=== PATIENT | male | born 1995 | race Caucasian/White ===

== ENCOUNTER 2017-04-13 10:56 | Outpatient (CLI) | payer BC | END 2017-04-13 10:57 | disposition home or self-care (01) | LOC: LABBT 10:56 | PROVIDERS: ATTEND Specialist | DX: Z01.812 Encounter for preprocedural laboratory examination (principal); K40.90 Unilateral inguinal hernia, without obstruction or gangrene, not specified as recurrent ==

== ENCOUNTER 2017-04-19 10:30 | Day surgery (SDC) | payer BC ==
[2017-04-18 13:12] VITALS: BMI 27.9
[2017-04-19] MEDS ORDERED: CEFAZOLIN/Water 2 GM/20 ML SYRINGE ONE (11:14)
[2017-04-19] MEDS ORDERED: Ketorolac Tromethamine 30 MG/ML VIAL ONE ×2 (11:15→13:37)
[2017-04-19 11:29] LABS: #Basophils 0.1 thou/uL (0.0-0.2); #Eosinphils 0.1 thou/uL (0.0-0.7); #Monocytes 0.6 thou/uL (0.11-0.59); #Neutrophils 4.5 thou/uL (1.40-6.50); %Basophils 1.5 % (0.0-1.0); %Eosinophils 1.9 % (0.0-10.0); %Lymphocytes 27.3 % (21.0-51.0); %Monocytes 8.4 % (0.0-10.0); Hematocrit 47.6 % (42.0-52.0); Mean Platelet Volume 6.3 fL (7.4-10.4); Red Blood Cell (RBC) Count 5.24 mill/uL (4.70-6.10); White Blood Cell (WBC) Count 7.3 thou/uL (4.8-10.8)
[2017-04-19 11:54] LABS: Anion Gap 12 mmol/L (10-20); BUN (Urea Nitrogen) 10 mg/dL (8.9-20.6); Calc. Creatinine Clearance 158 mL/min (70-130); Calcium 9.5 mg/dL (7.8-10.44); Carbon Dioxide 25 mmol/L (22-29); Chloride 106 mmol/L (98-107); Estimated GFR-MDRD Greater than 90
[2017-04-19] MEDS ORDERED: Fentanyl 250 MCG/5 ML VIAL ONE (12:51)
[2017-04-19] MEDS ORDERED: Bupivacaine/Epinephrine 0.25% 30 ML VIAL ONE (13:08)
[2017-04-19] MEDS ORDERED: Midazolam HCl 2 mg/2 ml Vial ONE (13:31)
[2017-04-19] MEDS ORDERED: Lidocaine 2% MPF 10 ML AMP (For Epidural Use) ONE (13:37)
[2017-04-19] MEDS ORDERED: Glycopyrrolate 0.2 MG/ML 5 ML SYRINGE ONE (13:37)
[2017-04-19] MEDS ORDERED: Propofol 200 MG/20 ML VIAL ONE (13:37)
[2017-04-19] MEDS ORDERED: Fentanyl 100 MCG/2 ML VIAL ONE (16:39)
[2017-04-19] MEDS ORDERED: HYDROcodone/Acetaminophen 5/325 mg Tablet ONE (17:19)
--- NOTE | 2017-04-19 22:03 | OP ---
DATE OF PROCEDURE: 04/19/2017 PREOPERATIVE DIAGNOSIS: Right inguinal hernia, large inguinoscrotal type. POSTOPERATIVE DIAGNOSIS: Right inguinal hernia, large inguinoscrotal type, large indirect hernia ex tending into the scrotum. OPERATION PERFORMED: Robotic repair of large right inguinal hernia using a large ProGrip mesh patch . SURGEON: Julius Holland M.D. ANESTHESIA: General endotracheal. INDICATIONS: The patient is a 21-year-old white male, who presents with a large visible and palpabl e right inguinal hernia. This extended into his upper scrotum. He is taken to the operating room a t this time for robotic repair. DESCRIPTION OF OPERATION: Informed consent was obtained. The patient was taken to the operating ro om where general endotracheal anesthesia was obtained with the patient in supine position. Abdomen was prepped with ChloraPrep and draped in usual sterile fashion and patient was placed in Trendelenb urg position. Local anesthetic was infiltrated and a 12-mm supraumbilical incision was created thro ugh which a Veress needle was passed into the peritoneal cavity and pneumoperitoneum established usi ng carbon dioxide up to a pressure of 15 mmHg. A 12-mm trocar port was passed through this same inc ision and laparoscopic camera was passed through this port. Under direct vision, 2 additional 8-mm robotic ports were placed on either side of midline at the supraumbilical level. The robot was then docked to the ports and the camera and the operation was continued from the robotic console. The patient had a large obvious indirect hernia on the right side. Transverse incision was created in the peritoneum several centimeters superior to the hernia defect. Preperitoneal dissection was c arried inferiorly. I dissected the pubic tubercle and Kem's ligament on the medial aspect. On t he lateral aspect, I dissected laterally and inferiorly enough to give adequate room for the mesh to be placed. Attention was turned to the large hernia. This was carefully dissected away from the remaining cord structures and dissected distally along the cord until I arrived at the end of the hernia at which point it was dissected free from cord structures. I then dissected it widely away from the cord str uctures to give adequate peritoneal laxity for mesh placement. The large ProGrip mesh patch was obt ained and passed into the abdominal cavity. This positioned in the preperitoneal location and unfur led in a medial to lateral fashion. The medial aspect was secured to the pubic tubercle with a 2-0 Vicryl suture. I then placed 2 sutures on the anterior aspect, one medial to the epigastric vessels and one lateral to the epigastric vessels. There was excellent coverage over the hernia defect. T he peritoneum was then closed with a running suture of 3-0 Stratafix. The fascia at the 12-mm port site was closed with 0 Vicryl suture using a GraNee needle. All ports and instruments were removed under direct vision. Pneumoperitoneum was carefully evacuated. Quarte r percent Marcaine with epinephrine was infiltrated in each port site. Skin edges approximated with 4-0 Monocryl subcuticular suture and Dermabond was placed externally. There were no complications. The patient tolerated the procedure well and was taken to recovery room in stable condition.
== END 2017-04-19 17:53 | disposition home or self-care (01) ==
LOC: SDC 10:30
PROVIDERS: ATTEND Specialist
PROC: 0YU54JZ Supplement Right Inguinal Region with Synthetic Substitute, Percutaneous Endoscopic Approach (ICD-10-PCS; principal; 2017-04-19)
DX: K40.90 Unilateral inguinal hernia, without obstruction or gangrene, not specified as recurrent (principal); F90.9 Attention-deficit hyperactivity disorder, unspecified type; F17.210 Nicotine dependence, cigarettes, uncomplicated; Z90.89 Acquired absence of other organs
CPT/HCPCS: 36415; 80048; 85025; 96374; S2900; J0131; J1170; J1885; J2001; J2250; J2704; J3010

== ENCOUNTER 2018-03-15 22:58 | Emergency (ER) | payer BC ==
--- NOTE | 2018-03-15 23:37 | RAD ---
RIGHT SHOULDER THREE VIEWS: 03/15/18 HISTORY: Injury, right shoulder pain. FINDINGS/IMPRESSION: No acute fracture or dislocation is identified. POS: DOC
== END 2018-03-15 23:53 | disposition home or self-care (01) ==
LOC: ERS 22:58
DX: S46.911A Strain of unspecified muscle, fascia and tendon at shoulder and upper arm level, right arm, initial encounter (principal); F17.220 Nicotine dependence, chewing tobacco, uncomplicated; Y04.0XXA Assault by unarmed brawl or fight, initial encounter; Y93.72 Activity, wrestling